=== PATIENT | male | born 1990 | race African-American/Black ===

== ENCOUNTER 2019-10-20 17:46 | Emergency (ER) | payer MEDICAID, OTHER ==
[~2019-10-20] VITALS: Ht 198.1 cm; Wt 95.7 kg
[2019-10-20] MEDS ORDERED: IBUPROFEN 600 MG TAB PO ONE (18:00)
[2019-10-20 19:02] VITALS: BP 128/97
== END 2019-10-20 20:27 | disposition home or self-care (01) ==
LOC: ER 17:46
DX: S13.4XXA Sprain of ligaments of cervical spine, initial encounter (principal); S33.5XXA Sprain of ligaments of lumbar spine, initial encounter; M25.561 Pain in right knee; M62.838 Other muscle spasm; V89.2XXA Person injured in unspecified motor-vehicle accident, traffic, initial encounter; Y93.I9 Activity, other involving external motion; Y92.410 Unspecified street and highway as the place of occurrence of the external cause; Y99.8 Other external cause status
CPT/HCPCS: 70450; 72125; 72131; 73562